=== PATIENT | male | born 1985 | race Caucasian/White ===

== ENCOUNTER → 2024-02-28 | Outpatient (CLI) | payer BC | LOC: RAD 09:06 | DX: M25.572 Pain in left ankle and joints of left foot (principal) ==

== ENCOUNTER → 2024-03-10 | Outpatient (CLI) | payer BC ==
[2024-03-10 09:45] LABS: ALBUMIN 4.1 g/dL (3.5-5.0)
[2024-03-10 09:47] LABS: CALCIUM 9.7 mg/dL (8.3-10.5)
[2024-03-10 09:48] LABS: TOTAL PROTEIN 7.5 g/dL (6.4-8.3)
[2024-03-10 09:50] LABS: TOTAL BILIRUBIN 0.9 mg/dL (0.2-1.2)
== END ==
LOC: LAB 09:16
PROVIDERS: Family Medicine
DX: M10.072 Idiopathic gout, left ankle and foot (principal)

== ENCOUNTER → 2024-09-05 | Outpatient (REF) | payer BC | LOC: LAB 14:59 | DX: R50.9 Fever, unspecified (principal); Z20.822 Contact with and (suspected) exposure to COVID-19 ==